=== PATIENT | female | born 1970 | race Caucasian/White ===

== ENCOUNTER 2021-02-18 12:18 | Emergency (ER) | payer OTHER ==
[~2021-02-18] VITALS: Ht 162.6 cm; Wt 79.4 kg
[~2021-02-18 12:18] MED LIST: BENTYL 20 MG TA20 M1 PO; CIPRO500 MG PO; CIPROFLOXACIN500 M1 PO; FLAGYL500 MG PO; FLEXERIL PO; HYDROCODON-ACE1 EAC7 PO; IBUPROFEN 600600 M1 PO; KEFLEX500 MG PO; NAPROSYN500 MG PO; NORCO 5-325 TA1 EAC1 PO; NORCO 5-325 TA1 EACH PO; ZOFRAN ODT4 M1 PO; ZOFRAN ODT4 MG PO
[2021-02-18] MEDS ORDERED: LIPITOR 20 MG T20 M1 PO (12:29)
[2021-02-18] MEDS ORDERED: TOPROL XL25 MG PO (12:29)
[2021-02-18] MEDS ORDERED: OMEPRAZOLE40 MG PO (12:30)
[2021-02-18] MEDS ORDERED: HYDROXYZINE HCL25 M2 PO (12:30)
[2021-02-18] MEDS ORDERED: ZOLOFT100 MG PO (12:30)
--- NOTE | 2021-02-18 14:25 | EKG ---
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: : 1970 Requested By: All Barrientos Order Number: [id number] MD: Soham Elliott Measurements Intervals [place] Rate: 99 P: 45 OR: 127 QRS: 92 QRSD: 86 T: 47 QT: 347 QTc: 446 Interpretive Statements Sinus rhythm Borderline right axis deviation Compared to ECG 04/08/2016 14:48:14 Sinus tachycardia no longer present Right ventricular hypertrophy no longer present Electronically Signed On 02-18-2021 14:25:23 MANAGER [employer]RO[employer] by Soham Elliott [email or web address] <ELECTRONICALLY SIGNED> By: Soham Elliott MD, [facility] 02/18/21 1425 1220 1220 Soham Elliott MD, [facility] /EPI
[2021-02-18 14:53] LABS: ABSOLUTE EOSINOPHILS 0.1 thou/uL (0.0-0.7); ABSOLUTE LYMPHOCYTES 3.1 thou/uL (0.8-5.3); ABSOLUTE MONOCYTES 0.8 thou/uL (0.0-1.2); ABSOLUTE NEUTROPHILS 7.6 thou/uL (1.6-8.1); BASOPHILS 0.4 %; EOSINOPHILS 0.7 %; HEMATOCRIT 47.5 % (37.0-47.0); HEMOGLOBIN 16.4 gm/dL (12.0-15.0); LYMPHOCYTES 26.9 %; MCH 33.5 pg (26.0-34.0); MCHC 34.4 g/dL (28.0-37.0); MCV 97.3 fL (80.0-100.0); MPV 7.7 fl. (7.2-11.1); NUCLEATED RBCS 0 /100WBC; PLATELET COUNT* 288 thou/uL (150-400); RBC 4.88 mil/uL (4.20-5.00); RDW-CV 12.5 % (10.5-14.5); WBC 11.7 thou/uL (4.0-11.0)
[2021-02-18 15:00] LABS: CALCIUM 8.9 mg/dL (8.5-10.1); CREATININE 0.8 mg/dL (0.6-1.3); POTASSIUM 3.9 mmol/L (3.5-5.1)
[2021-02-18 15:12] LABS: ALBUMIN 3.8 g/dL (3.4-5.0); MAGNESIUM 2.1 mg/dL (1.8-2.4); TOTAL BILIRUBIN 0.5 mg/dL (<0.1-1.0); TOTAL PROTEIN 7.8 g/dL (6.4-8.2)
[2021-02-18 15:54] VITALS: BP 134/70
== END 2021-02-18 15:56 | disposition home or self-care (01) ==
LOC: M.ERS 12:18
PROVIDERS: Physician Assistant
DX: R07.89 Other chest pain (principal); F17.210 Nicotine dependence, cigarettes, uncomplicated; Z90.710 Acquired absence of both cervix and uterus; Z90.89 Acquired absence of other organs; Z90.49 Acquired absence of other specified parts of digestive tract; Z79.899 Other long term (current) drug therapy; Z88.1 Allergy status to other antibiotic agents